=== PATIENT | female | born 1980 | race Caucasian/White ===

== ENCOUNTER → 2018-01-20 | Outpatient (CLI) | payer BC | LOC: M.ULTRA 07:42 | DX: M79.89 Other specified soft tissue disorders (principal) ==

== ENCOUNTER → 2018-02-06 | Outpatient (CLI) | payer BC ==
--- NOTE | 2018-02-14 16:07 | PATH ---
[address] [address] PATHOLOGY RPT PROCEDURE Name: CANDIE ATKINS Room: [facility]#: [id number] Admission: 02/06/18 Date of : 80 Discharge: Report #: [id number] Path Case #: [id number] Note [facility] Accession Number: [id number] TESTS RESULT FLAG UNITS REF RANGE LAB Clinician Provided Cytology Information No. of containers..01 Other (Miscellaneous) Source: LT ELBOW DIAGNOSIS: LT ELBOW NEGATIVE FOR MALIGNANT CELLS. HETEROGENOUS POPULATION OF LYMPHOCYTES, FEW HISTIOCYTES AND BLOOD, CONSISTENT WITH A REACTIVE LYMPH NODE. THIS INTERPRETATION INCLUDES EVALUATION OF A CELL BLOCK. SEE COMMENT. COMMENT: FLOW CYTOMETRY PERFORMED ON A SEPARATE SAMPLE ([employer] CASE NO. [id number]) SHOWED LOW CELLULARITY AND NO IMMUNOPHENOTYPIC EVIDENCE OF A LYMPHOPROLIFERATIVE DISORDER. THE CYTOLOGY SPECIMEN IS ALSO LIMITED BY LOW CELLULARITY WITH SOME SMEAR ARTIFACT. Signed out by: 02 Jonh Calloway MD, Pathologist NPI- [id number] Performed by: 01 Phil Robb, Chief Librarian Extension Department ([facility]) Gross description: 01 2ML, RED, CLOUDY /LCS FLAG LEGEND: L-Low Normal,H-High Normal,LL-Alert Low,HH-Alert High <-Panic Low,>-Panic High,A-Abnormal,AA-Critical Abnormal Performed at: [address] [place] [address] Romero Chew MD, [address] [address] Jonh Calloway MD, Specimen Comment: A courtesy copy of this report has been sent to Specimen Comment: [phone]. Specimen Comment: Report sent to Performed at: [address], [place], [place] [id number] MD Romero Chew MD Phone: [phone]
== END | disposition home or self-care (01) ==
LOC: M.ULTRA 08:11
DX: D47.9 Neoplasm of uncertain behavior of lymphoid, hematopoietic and related tissue, unspecified (principal)